=== PATIENT | female | born 1995 | race Hispanic/Latino ===

== ENCOUNTER 2018-01-07 08:39 | Emergency (ER) | payer BC, MEDICARE ==
[~2018-01-07] VITALS: Ht 165.1 cm; Wt 77.1 kg
[~2018-01-07 08:39] MED LIST: ALBUTEROL
[2018-01-07] MEDS ORDERED: ACETAMINOPHEN/CODEINE 300MG - 30MG TAB PO ONE (09:15)
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
[2018-01-07] MEDS ORDERED: PREDNISONE20 MG PO (12:38)
[2018-01-07] MEDS ORDERED: ZITHROMAX TRI-500 MG PO (12:39)
== END 2018-01-07 12:45 | disposition home or self-care (01) ==
LOC: ER 08:39
DX: R05 Cough (principal); J20.8 Acute bronchitis due to other specified organisms; Z77.22 Contact with and (suspected) exposure to environmental tobacco smoke (acute) (chronic)
CPT/HCPCS: 71045; 99283

== ENCOUNTER 2019-01-20 20:59 | Emergency (ER) | payer OTHER ==
[~2019-01-20] VITALS: Ht 165.1 cm; Wt 79.4 kg
[~2019-01-20 20:59] MED LIST changes: +PREDNISONE20 MG PO; +ZITHROMAX TRI-500 MG PO
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
[2019-01-20 22:47] LABS: BILIRUBIN,URINE NEGATIVE (NEGATIVE); CLARITY,URINE CLEAR (CLEAR); COLOR,URINE YELLOW (YELLOW); KETONES,URINE NEGATIVE (NEGATIVE); LEUKOCYTE ESTERASE ,URINE NEGATIVE (NEGATIVE); NITRITE,URINE NEGATIVE (NEGATIVE); PROTEIN,URINE DIPSTICK NEGATIVE (NEGATIVE); URINE UROBILINOGEN 0.2 mg/dL (0.2 - 1)
[2019-01-20 22:56] LABS: BASOPHILS % 0.2 % (0.0-1.0); EOSINOPHILS # (AUTO) 0.2 (0.0-0.4); EOSINOPHILS % 1.2 % (0.0-6.0); HEMATOCRIT 40.8 % (34.2-44.1); HEMOGLOBIN 13.7 g/dL (12.0-16.0); LYMPHOCYTES # (AUTO) 2.5 (1.0-3.2); LYMPHOCYTES % 16.4 % (18.0-39.1); MEAN CORPUSCULAR HEMOGLOBIN 28.4 pg (28-32); MEAN CORPUSCULAR HGB CONC 33.6 g/dL (31-35); MEAN CORPUSCULAR VOLUME 84.6 fL (81-99); MONOCYTES # (AUTO) 1.2 (0.2-0.8); MONOCYTES % 7.8 % (4.4-11.3); NEUTROPHILS # (AUTO) 11.2 (2.1-6.9); PLATELET COUNT 313 x10e3/uL (140-360); RED BLOOD COUNT 4.82 x10e6/uL (3.6-5.1); RED CELL DISTRIBUTION WIDTH 13.1 % (11.7-14.4)
[2019-01-20 23:01] LABS: BACTERIA,URINE FEW /HPF; EPITHELIAL CELLS,URINE FEW /LPF; RBC,URINE 21-50 /HPF (0-5)
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
[2019-01-20 23:19] LABS: ANION GAP 14.6 mmol/L (8-16); BLOOD UREA NITROGEN 11 mg/dL (7-26); BUN/CREATININE RATIO 14 (6-25); CALCIUM 9.9 mg/dL (8.4-10.2); CARBON DIOXIDE 25 mmol/L (22-29); CHLORIDE 101 mmol/L (98-107); EST GLOMERULAR FILTRATION RATE > 60 ML/MIN (60-); GLUCOSE 97 mg/dL (74-118); POTASSIUM 3.6 mmol/L (3.5-5.1); SODIUM 137 mmol/L (136-145)
[2019-01-20] MEDS ORDERED: IOPAMIDOL 370 MG/ML 200 ML INFUS..BTL INJ ONE (23:35)
[2019-01-20] MEDS ORDERED: SODIUM CHLORIDE 0.9% 50ML 50 ML ONE (23:35)
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
[2019-01-21] MEDS ORDERED: HYDROCODONE/APAP 10MG-325MG TAB PO ONE (00:45)
[2019-01-21] MEDS ORDERED: ONDANSETRON HCL 4 MG ORAL DISINTEGRATING TAB PO ONE (00:45)
[2019-01-21 01:59] VITALS: BP 118/75
== END 2019-01-21 02:50 | disposition home or self-care (01) ==
LOC: ER 20:59
DX: S00.83XA Contusion of other part of head, initial encounter (principal); S62.322A Displaced fracture of shaft of third metacarpal bone, right hand, initial encounter for closed fracture; S30.1XXA Contusion of abdominal wall, initial encounter; S60.221A Contusion of right hand, initial encounter; S50.11XA Contusion of right forearm, initial encounter; S40.011A Contusion of right shoulder, initial encounter; V43.62XA Car passenger injured in collision with other type car in traffic accident, initial encounter; Y92.488 Other paved roadways as the place of occurrence of the external cause; N30.91 Cystitis, unspecified with hematuria; J45.909 Unspecified asthma, uncomplicated
CPT/HCPCS: 29125; 36415; 70450; 71045; 72125; 73030; 73090; 73130; 74177; 80048; 81001; 84702; 85025; 99284; Q0162; Q9967